=== PATIENT | female | born 1955 | race American Indian/Alaskan Native ===

== ENCOUNTER 2020-06-01 14:51 | Emergency (ER) | payer SELFPAY ==
[2020-06-01 15:54] VITALS: BP 147/69
[2020-06-01 17:08] LABS: Basophils % (Auto) 0.3 % (0.0-1.8); Eosinophils # (Auto) 0.1 K/mm3 (0.0-0.4); Eosinophils % (Auto) 1.6 % (0.0-4.3); Hematocrit 43.4 % (30.3-42.9); Lymphocytes # (Auto) 2.1 K/mm3 (1.2-5.4); Lymphocytes % (Auto) 39.2 % (13.4-35.0); Mean Corpuscular HGB Conc 35 % (30-34); Mean Corpuscular Volume 99 fl (79-97); Monocytes # (Auto) 0.5 K/mm3 (0.0-0.8); Monocytes % (Auto) 8.9 % (0.0-7.3); Platelet Count 196 K/mm3 (140-440); Red Blood Count 4.39 M/mm3 (3.65-5.03); Red Cell Distribution Width 12.2 % (13.2-15.2)
[2020-06-01 17:29] LABS: Alanine Aminotransferase 17 units/L (7-56); Albumin 4.7 g/dL (3.9-5); Blood Urea Nitrogen 11 mg/dL (7-17); Calcium 9.6 mg/dL (8.4-10.2); Hemolysis Index 12
[2020-06-01 17:30] LABS: BUN/Creatinine Ratio 18
== END 2020-06-01 16:50 | disposition left against medical advice (07) ==
LOC: ED 14:51
DX: M25.512 Pain in left shoulder (principal); Z53.21 Procedure and treatment not carried out due to patient leaving prior to being seen by health care provider
CPT/HCPCS: 36415; 80053; 85025

== ENCOUNTER 2020-10-18 13:13 | Emergency (ER) | payer SELFPAY ==
--- NOTE | 2020-10-18 13:37 | Event Note ---
ED Screening Note Date of service: 10/18/20 Time: 13:37 ED Screening Note: Patient complains of recurrent left-sided headache, left-sided neck pain, and left arm weakness x2 weeks History of seizures, currently taking Dilantin Denies any head trauma This initial assessment/diagnostic orders/clinical plan/treatment(s) is/are subject to change based on patients health status, clinical progression and re- assessment by fellow clinical providers in the ED. Further treatment and workup at subsequent clinical providers discretion. Patient/guardian urged not to elope from the ED as their condition may be serious if not clinically assessed and managed. Initial orders include: Labs CT
--- NOTE | 2020-10-18 14:29 | Cat Scan Report ---
CT HEAD WITHOUT CONTRAST INDICATION / CLINICAL INFORMATION: left sided headache x 2 weeks; L arm weakness. TECHNIQUE: Axial imaging performed from the skull apex through the skull base without the use of cont rast. Sagittal and coronal reformatted images. All CT scans at this location are performed using CT dose reduction for ALARA by means of automated exposure control. COMPARISON: None available. FINDINGS: CEREBRAL PARENCHYMA: No significant abnormality. No acute territorial infarct. HEMORRHAGE: None. EXTRA-AXIAL SPACES: Normal in size and morphology for the patient's age. VENTRICULAR SYSTEM: Normal in size and morphology for the patient's age. MIDLINE SHIFT OR HERNIATION: None. 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 The remainder of the posterior fossa is unremarkable. CALVARIUM: No significant abnormality. ORBITS: Normal as visualized. PARANASAL SINUSES / MASTOID AIR CELLS: Normal as visualized. SOFT TISSUES of HEAD: No significant abnormality. ADDITIONAL FINDINGS: None. IMPRESSION: No acute intracranial abnormality. Signer Name: Tomas Garcia Jr, MD Signed: 10/18/2020 2:24 PM Workstation Name: [id number]
[2020-10-18 14:36] LABS: Basophils % (Auto) 0.4 % (0.0-1.8); Eosinophils % (Auto) 1.6 % (0.0-4.3); Hematocrit 40.8 % (30.3-42.9); Hemoglobin 14.4 gm/dl (10.1-14.3); Lymphocytes % (Auto) 36.1 % (13.4-35.0); Mean Corpuscular HGB Conc 35 % (30-34); Mean Corpuscular Volume 99 fl (79-97); Monocytes % (Auto) 6.4 % (0.0-7.3); Platelet Count 187 K/mm3 (140-440); Red Blood Count 4.11 M/mm3 (3.65-5.03)
[2020-10-18 14:37] LABS: Eosinophils # (Auto) 0.1 K/mm3 (0.0-0.4); Lymphocytes # (Auto) 2.1 K/mm3 (1.2-5.4); Monocytes # (Auto) 0.4 K/mm3 (0.0-0.8)
[2020-10-18 14:39] LABS: Alanine Aminotransferase 15 units/L (7-56); Albumin 4.3 g/dL (3.9-5); Blood Urea Nitrogen 11 mg/dL (7-17); Calcium 9.2 mg/dL (8.4-10.2); Hemolysis Index 13
[2020-10-18 14:40] LABS: BUN/Creatinine Ratio 18
--- NOTE | 2020-10-18 21:20 | Emergency Department Report ---
ED Headache HPI - General Chief Complaint: Headache Stated Complaint: SHOULDER PAIN Time Seen by Provider: 10/18/20 20:48 Source: patient Exam Limitations: no limitations - History of Present Illness Initial Comments: Patient is a 66-year-old female that presents emergency room with complaints of headache and neck pain for 2 to 3 weeks. Patient states that the symptoms are worsening. Patient states she has not seen an orthopedist, neurologist, any specialist or her primary care for this problem. Patient states he came emergency room because she was starting to get nervous that the pain had not improved. Patient denies numbness and tingling to the left arm. Patient states the pain is radiating down her neck and into her left upper extremity. Patient denies chest pain or shortness of breath. Patient denies any weakness in either of her extremities. Patient states she is able to walk around and do everything. Patient dates she has full mobility but it hurts with her range of motion. Patient states that her headache and neck pain are a 5 out of 10. Patient states that the headache and neck pain are better with rest and worse with movement. Patient denies dizziness. Patient denies blurry vision. Patient denies fever and chills. Patient states she is only taken 200 mg of ibuprofen for this pain. Patient states that the ibuprofen does help. Patient states she gets almost full relief for a few hours after taking ibuprofen but then the pain comes back. Patient denies recent travel. Patient denies recent international travel. Patient denies exposure to the novel coronavirus. Patient denies sick contacts. Patient denies fever and chills. Patient denies cough. Patient denies diarrhea. Patient denies coming in contact with anybody with symptoms of the novel coronavirus. Timing/Duration: other (Weeks) Quality: moderate Recent Head Trauma: no recent headache/trauma, occasional headaches Modifying Factors: improves with: movement, rest Associated Symptoms: denies symptoms. denies: confusion, fatigue, facial pain, fever/chills, flushing, loss of consciousness, nausea/vomiting, nasal congestion, nasal drainage, numbness in legs/feet, rash, seizures, sinus infection, stiff neck, vision changes, weakness Allergies/Adverse Reactions: Allergies No Known Allergies Allergy (Unverified 06/01/20 15:50) Home Medications: Ambulatory Orders methOCARBAMOL [Robaxin TAB] 500 mg PO BID #20 tab 10/18/20 methylPREDNISolone [Medrol 4MG DOSEPAK (21 tabs)] 4 mg PO DAILY 6 Days #1 tab.ds.pk 10/18/20 ED Review of Systems ROS: Stated complaint: SHOULDER PAIN Other details as noted in HPI Constitutional: denies: chills, fever Eyes: denies: eye pain, eye discharge, vision change ENT: denies: ear pain, throat pain Respiratory: denies: cough, shortness of breath, wheezing Cardiovascular: denies: chest pain, palpitations Endocrine: no symptoms reported Gastrointestinal: denies: abdominal pain, nausea, diarrhea Genitourinary: denies: urgency, dysuria, discharge Musculoskeletal: denies: back pain, joint swelling, arthralgia Skin: denies: rash, lesions Neurological: denies: headache, weakness, paresthesias Psychiatric: denies: anxiety, depression Hematological/Lymphatic: denies: easy bleeding, easy bruising ED Past Medical Hx - Past Medical History Previous Medical History?: Yes Hx Seizures: Yes Additional medical history: TAKE DILANTIN 100MG - Surgical History Past Surgical History?: Yes Additional Surgical History: - Family History Family history: no significant - Social History Smoking Status: Never Smoker Substance Use Type: None - Medications Home Medications: Home Medications Medication Instructions Recorded Confirmed Last Taken Type methOCARBAMOL [Robaxin TAB] 500 mg PO BID #20 tab 10/18/20 Unknown Rx methylPREDNISolone [Medrol 4MG 4 mg PO DAILY 6 Days #1 tab.ds.pk 10/18/20 Unknown Rx DOSEPAK (21 tabs)] ED Physical Exam - General Limitations: No Limitations General appearance: alert, in no apparent distress - Head Head exam: Present: atraumatic, normocephalic - Eye Eye exam: Present: normal appearance, PERRL Pupils: Present: normal accommodation - ENT ENT exam: Present: mucous membranes moist - Neck Neck exam: Present: normal inspection, full ROM. Absent: tenderness, meningismus - Respiratory Respiratory exam: Present: normal lung sounds bilaterally. Absent: respiratory distress - Cardiovascular Cardiovascular Exam: Present: regular rate, normal rhythm, normal heart sounds. Absent: systolic murmur, diastolic murmur, rubs, gallop - GI/Abdominal GI/Abdominal exam: Present: soft, normal bowel sounds. Absent: distended, tenderness, guarding - Rectal Rectal exam: Present: deferred - Extremities Exam Extremities exam: Present: normal inspection, full ROM, normal capillary refill. Absent: tenderness, pedal edema, joint swelling, calf tenderness - Back Exam Back exam: Present: normal inspection, full ROM. Absent: tenderness, CVA tenderness (R), CVA tenderness (L), muscle spasm, paraspinal tenderness, vertebral tenderness - Neurological Exam Neurological exam: Present: alert, oriented X3, CN II-XII intact, normal gait, reflexes normal. Absent: abnormal gait, motor sensory deficit - Expanded Neurological Exam Expanded Cerebellar function: Finger to Nose: Normal, Heel to Hernandez: Normal, Romberg: Normal Upper motor neuron: Emiliano Neglect: Normal, Pronator Drift: Normal, Babinski Sign: Normal, Sensory Extinction: Normal Sensory exam: Upper Extremity Light Touch: Normal, Upper Extremity Pin Prick: Normal, Upper Extremity Temperature: Normal, UE 2 Point Discrimination: Normal, Lower Extremity Light Touch: Normal, Lower Extremity Pin Prick: Normal, Lower Extremity Temperature: Normal, LE 2 Point Discrimination: Normal Motor strength exam: RUE: 5, LUE: 5, RLE: 5, LLE: 5 Best Eye Response (Meridian): (4) open spontaneously Best Motor Response (Bandar): (6) obeys commands Best Verbal Response (Bandar): (5) oriented Meridian Total: 15 - Psychiatric Psychiatric exam: Present: normal affect, normal mood - Skin Skin exam: Present: warm, dry, intact, normal color. Absent: rash ED Course Vital Signs 10/18/20 10/18/20 13:27 21:15 Temperature 98.2 F 98.1 F Pulse Rate 82 74 Respiratory 16 18 Rate Blood Pressure 143/61 Blood Pressure 151/54 [Left] O2 Sat by Pulse 98 96 Oximetry - Reevaluation(s) Reevaluation #1: I discussed all results and clinical findings with patient. I discussed plan of care with patient. Patient agrees with plan of care. Patient is stable for discharge. Patient will be discharged home. Patient given discharge instructions. Patient voiced understanding of discharge instructions. 10/18/20 21:57 ED Medical Decision Making - Lab Data Result diagrams: 10/18/20 13:56 10/18/20 13:56 - Radiology Data Radiology results: report reviewed CT HEAD WITHOUT CONTRAST INDICATION / CLINICAL INFORMATION: left sided headache x 2 weeks; L arm weakness. TECHNIQUE: Axial imaging performed from the skull apex through the skull base without the use of contrast. Sagittal and coronal reformatted images. All CT scans at this location are performed using CT dose reduction for ALARA by means of automated exposure control. COMPARISON: None available. FINDINGS: CEREBRAL PARENCHYMA: No significant abnormality. No acute territorial infarct. HEMORRHAGE: None. EXTRA-AXIAL SPACES: Normal in size and morphology for the patient's age. VENTRICULAR SYSTEM: Normal in size and morphology for the patient's age. MIDLINE SHIFT OR HERNIATION: None. CEREBELLUM / BRAINSTEM: Approximate 1 cm chronic focal infarct in the superior right cerebellar hemisphere is noted. The remainder of the posterior fossa is unremarkable. CALVARIUM: No significant abnormality. ORBITS: Normal as visualized. PARANASAL SINUSES / MASTOID AIR CELLS: Normal as visualized. SOFT TISSUES of HEAD: No significant abnormality. ADDITIONAL FINDINGS: None. IMPRESSION: No acute intracranial abnormality. CT cervical spine wo con INDICATION / CLINICAL INFORMATION: 66 years Female; neck radiating down left arm. TECHNIQUE: Axial CT images of the cervical spine were obtained. Sagittal and coronal reformatted images were produced. All CT scans at this location are performed using CT dose reduction for ALARA by means of automated exposure control. COMPARISON: None available. FINDINGS: POST-SURGICAL CHANGES: None. ALIGNMENT: There is slight retrolisthesis of C4 with respect to C3, which appears to be on a degenerative basis. VERTEBRAE: No signs of fracture. Vertebral bodies are grossly normal in height throughout. There is significant osseous foraminal narrowing on the left at C4-5 and C5-6 related uncinate hypertrophy. Mild foraminal narrowing seen on the right from C3-4 through C5-6 related uncinate and/or facet hypertrophy. [id number], multilevel facet hypertrophy seen. INTRAVERTEBRAL DISCS: Disc space narrowing seen at C4-5, C5-6, C3-4, and C6-7. Focal disc protrusions seen from C3-4 through C5-6. Minimal disc disease seen at C6-7. There is encroachment upon the cervical cord at these levels. There may be borderline cord impingement at C3- 4 or C5-6. PARASPINAL SOFT TISSUES: No significant abnormality. ADDITIONAL FINDINGS: None. IMPRESSION: 1. Degenerative changes of the lumbar spine as described above. Please correlate with dermatomal distribution of patient's symptoms, if present. MRI and/or CT myelography of the cervical spine may be of benefit. - Medical Decision Making Patient is a 66-year-old female that presents emergency room with complaints of headache and neck pain. Patient's neck pain is radiating down her left upper extremity. Patient had labs done which were essentially normal. Patient had a CT of the head for her headache. Patient's head CT was negative for acute finding. Patient had a CT scan of the neck to rule out an acute problem. Patient CT of the neck was negative for acute findings except for degenerative disc disease. Patient's neuro exam is negative. Patient sensory exam is within normal limits. Patient's not having neurologic defects. Patient clinical findings are consistent with headache, neck pain, cervical radiculopathy. Patient is stable for discharge. Patient be discharged home. Patient given d ischarge instructions. Patient will refer to a neurologist and an orthopedist. - Differential Diagnosis Headache, neck pain, cervical radiculopathy, nerve impingement, Critical care attestation.: If time is entered above; I have spent that time in minutes in the direct care of this critically ill patient, excluding procedure time. ED Disposition Clinical Impression: Cervical radicular pain, Neck pain, Degenerative disc disease, cervical Headache Qualifiers: Headache type: unspecified Headache chronicity pattern: acute headache Intractability: not intractable Qualified Code(s): R51.9 - Headache, unspecified Disposition: DC-01 TO HOME OR SELFCARE Is pt being admited?: No Does the pt Need Aspirin: No Condition: Stable Instructions: Neck Exercises, Radicular Pain, Cervical Radiculopathy, [id number] Additional Instructions: Patient to follow-up with primary care in 2 to 3 days. Patient to follow-up with orthopedist in 2 to 3 days. Patient to rest. Patient to increase water. Patient to avoid strenuous exercise or heavy lifting until cleared by primary care and orthopedist. Patient to take Tylenol or ibuprofen as needed for pain. Patient to take meds as directed. Patient to return to the ER if condition worsens, changes or new symptoms arise. Prescriptions: methylPREDNISolone [Medrol 4MG DOSEPAK (21 tabs)] 4 mg PO DAILY 6 Days #1 tab.ds.pk methOCARBAMOL [Robaxin TAB] 500 mg PO BID #20 tab Referrals: PRIMARY CAREMD [Primary Care Provider] - 2-3 Days AARON SON MD [Staff Physician] - 2-3 Days PAYAL COLLINS MD [Staff Physician] - 2-3 Days Time of Disposition: 22:51
[2020-10-18 21:23] VITALS: BP 151/54
--- NOTE | 2020-10-18 22:35 | Cat Scan Report ---
CT cervical spine wo con INDICATION / CLINICAL INFORMATION: 66 years Female; neck radiating down left arm. TECHNIQUE: Axial CT images of the cervical spine were obtained. Sagittal and coronal reformatted images were pr oduced. All CT scans at this location are performed using CT dose reduction for ALARA by means of aut omated exposure control. COMPARISON: None available. FINDINGS: POST-SURGICAL CHANGES: None. ALIGNMENT: There is slight retrolisthesis of C4 with respect to C3, which appears to be on a degenera tive basis. VERTEBRAE: No signs of fracture. Vertebral bodies are grossly normal in height throughout. There is significant osseous foraminal narrowing on the left at C4-5 and C5-6 related uncinate hypert rophy. Mild foraminal narrowing seen on the right from C3-4 through C5-6 related uncinate and/or face t hypertrophy. [id number], multilevel facet hypertrophy seen. INTRAVERTEBRAL DISCS: Disc space narrowing seen at C4-5, C5-6, C3-4, and C6-7. Focal disc protrusions seen from C3-4 through C5-6. Minimal disc disease seen at C6-7. There is encro achment upon the cervical cord at these levels. There may be borderline cord impingement at C3-4 or C 5-6. PARASPINAL SOFT TISSUES: No significant abnormality. ADDITIONAL FINDINGS: None. IMPRESSION: 1. Degenerative changes of the lumbar spine as described above. Please correlate with dermatomal dist ribution of patient's symptoms, if present. MRI and/or CT myelography of the cervical spine may be of benefit. Signer Name: Allen Grant MD, III Signed: 10/18/2020 10:30 PM Workstation Name: [id number]
== END 2020-10-18 23:04 | disposition home or self-care (01) ==
LOC: ED 13:13
DX: M50.30 Other cervical disc degeneration, unspecified cervical region (principal); M54.12 Radiculopathy, cervical region; R51.9 Headache, unspecified; Z79.899 Other long term (current) drug therapy; Z86.69 Personal history of other diseases of the nervous system and sense organs; Z98.890 Other specified postprocedural states
CPT/HCPCS: 36415; 70450; 72125; 80053; 85025